=== PATIENT | female | born 1955 | race Caucasian/White ===

== ENCOUNTER 2018-09-14 06:48 | Day surgery (SDC) | payer BC ==
[~2018-09-14 06:48] MED LIST: Lactated Ringers 1,000 ML IV SCH; Lidocaine 1%/Sod Bicarbonate in NS 8.4% 1 ML Syringe IDERM PRN; Sodium Chloride 0.9% 10 ML Syringe FLUSH PRN
[2018-09-14] MEDS ORDERED: Propofol 200 MG/20 ML SDV ONE ×2 (07:07→08:26)
[2018-09-14] MEDS ORDERED: Lidocaine 1% 4 ML ONE (07:07)
[2018-09-14] MEDS ORDERED: fentaNYL 100 MCG/2 ML SDV ONE (07:07)
--- NOTE | 2018-09-14 07:49 | PCM.PREANE ---
Preanesthetic Assessment - Anesthesia/Transfusion/Family Hx Anesthesia History: Prior Anesthesia Reaction Type of Anesthesia Reaction: Excessive Nausea/Vomiting Family History of Anesthesia Reaction: No - Review of Systems General: No Symptoms Pulmonary: No Symptoms Cardiovascular: No Symptoms Gastrointestinal: No Symptoms Neurological: No Symptoms Other: Reports: None (Morbid Obesity BMI 42) - Physical Assessment NPO Status Date: 09/13/18 NPO Status Time: 19:00 O2 Sat by Pulse Oximetry: 93 Respiratory Rate: 16 Vital Signs: Last Vital Signs Temp 36.7 C 09/14/18 07:15 Pulse 93 09/14/18 07:15 Resp 16 09/14/18 07:15 BP 134/91 H 09/14/18 07:15 Pulse Ox 93 L 09/14/18 07:15 Height: 1.63 m Weight: 110.677 kg ASA Class: 2 Mental Status: Alert & Oriented x3 Airway Class: Mallampati = 2 Dentition: Reports: Normal Dentition Thyro-Mental Finger Breadths: 3 ROM/Head Extension: Full Lungs: Clear to Auscultation, Normal Respiratory Effort Cardiovascular: Regular Rate, Regular Rhythm - Allergies Allergies/Adverse Reactions: Allergies Allergy/AdvReac Type Severity Reaction Status Date / Time Penicillins Allergy Rash Verified 09/14/18 07:40 - Acknowledgements Anesthesia Type Planned: MAC Pt an Appropriate Candidate for the Planned Anesthesia: Yes Alternatives and Risks of Anesthesia Discussed w Pt/Guardian: Yes Pt/Guardian Understands and Agrees with Anesthesia Plan: Yes PreAnesthesia Questionnaire HEENT History: Reports: Impaired Vision Cardiovascular History: Reports: None Respiratory History: Reports: None Gastrointestinal History: Reports: None Genitourinary History: Reports: None SALES PROPERTY MANAGER History: Reports: Fibroids Musculoskeletal History: Reports: None Neurological History: Reports: None Psychiatric History: Reports: None Endocrine/Metabolic History: Reports: Obesity/BMI 30+ Hematologic History: Reports: None Immunologic History: Reports: None Oncologic (Cancer) History: Reports: None Dermatologic History: Reports: None - Past Surgical History Head Surgeries/Procedures: Reports: None HEENT Surgical History: Reports: Tonsillectomy Cardiovascular Surgical History: Reports: None Respiratory Surgical History: Reports: None GI Surgical History: Reports: None Female Surgical History: Reports: Section, D&C, Tubal Ligation Male Surgical History: Reports: None Endocrine Surgical History: Reports: None Neurological Surgical History: Reports: None Musculoskeletal Surgical History: Reports: None Oncologic Surgical History: Reports: None - SUBSTANCE USE Smoking Status *Q: Never Smoker Recreational Drug Use History: No - HOME MEDS Home Medications: Home Meds Naproxen Sodium [Aleve] 220 mg PO BID PRN 09/13/18 [History] Acetaminophen [Tylenol Arthritis] 650 mg PO ASDIRECTED 09/14/18 [History] Acetaminophen/Diphenhydramine [Tylenol Pm Ex-Strength Caplet] 1 tab PO BEDTIME 09/14/18 [History] - CURRENT (IN HOUSE) MEDS Current Meds: Current Medications Lactated Ringer's (Ringers, Lactated) 1,000 mls @ 125 mls/hr IV ASDIRECTED NAYA Stop: 09/14/18 23:00 Last Admin: 09/14/18 07:25 Dose: 125 mls/hr Lidocaine/Sodium Bicarbonate (Buffered Lidocaine 1% In Ns 8.4%) 0.25 ml IDERM ONETIME PRN PRN Reason: Prior to IV Start Stop: 09/14/18 18:00 Last Admin: 09/14/18 07:25 Dose: 0.25 ml Sodium Chloride (Saline Flush) 10 ml FLUSH ASDIRECTED PRN PRN Reason: Keep Vein Open Stop: 09/14/18 18:00 Discontinued Medications Fentanyl (Sublimaze) Confirm Administered Dose 100 mcg .ROUTE .STK-MED ONE Stop: 09/14/18 07:08 Lidocaine HCl (Xylocaine-Mpf 1%) Confirm Administered Dose 4 mls @ as directed .ROUTE .STK-MED ONE Stop: 09/14/18 07:08 Propofol (Diprivan 20 Ml) Confirm Administered Dose 400 mg .ROUTE .STK-MED ONE Stop: 09/14/18 07:08
--- NOTE | 2018-09-14 07:59 | PCM.HP ---
H&P History of Present Illness - General Date of Service: 09/14/18 Admit Problem/Dx: 62 year old female here today for colonoscopy. +Family history of colon polyps. No blood in stool, no radical change in bowel habits. She has never had a colonoscopy. Abdomen Pain Score (Numeric/FACES): 0 - Related Data Allergies/Adverse Reactions: Allergies Allergy/AdvReac Type Severity Reaction Status Date / Time Penicillins Allergy Rash Verified 09/14/18 07:40 Home Medications: Home Meds Naproxen Sodium [Aleve] 220 mg PO BID PRN 09/13/18 [History] Acetaminophen [Tylenol Arthritis] 650 mg PO ASDIRECTED 09/14/18 [History] Acetaminophen/Diphenhydramine [Tylenol Pm Ex-Strength Caplet] 1 tab PO BEDTIME 09/14/18 [History] Past Medical History HEENT History: Reports: Impaired Vision Cardiovascular History: Reports: None Respiratory History: Reports: None Gastrointestinal History: Reports: None Genitourinary History: Reports: None 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 Musculoskeletal History: Reports: None Neurological History: Reports: None Psychiatric History: Reports: None Endocrine/Metabolic History: Reports: Obesity/BMI 30+ Hematologic History: Reports: None Immunologic History: Reports: None Oncologic (Cancer) History: Reports: None Dermatologic History: Reports: None - Past Surgical History Head Surgeries/Procedures: Reports: None HEENT Surgical History: Reports: Tonsillectomy Cardiovascular Surgical History: Reports: None Respiratory Surgical History: Reports: None GI Surgical History: Reports: None Female Surgical History: Reports: Section, D&C, Tubal Ligation Male Surgical History: Reports: None Endocrine Surgical History: Reports: None Neurological Surgical History: Reports: None Musculoskeletal Surgical History: Reports: None Oncologic Surgical History: Reports: None Social & Family History - Tobacco Use Smoking Status *Q: Never Smoker - Caffeine Use Caffeine Use: Reports: Coffee - Recreational Drug Use Recreational Drug Use: No Drug Use in Last 12 Months: No H&P Review of Systems - Review of Systems: Review Of Systems: See Below Pulmonary: Reports: No Symptoms Cardiovascular: Reports: No Symptoms Gastrointestinal: Reports: No Symptoms Exam - Exam Exam: See Below - Vital Signs Vital Signs: Last Vital Signs Temp 36.7 C 09/14/18 07:15 Pulse 93 09/14/18 07:15 Resp 16 09/14/18 07:49 BP 134/91 H 09/14/18 07:15 Pulse Ox 93 L 09/14/18 07:49 Weight: 110.677 kg - Exam HEENT: Other Neck: Trachea Midline Lungs: Clear to Auscultation, Normal Respiratory Effort Cardiovascular: Regular Rate, Regular Rhythm GI/Abdominal Exam: Normal Bowel Sounds Problem List Initiated/Reviewed/Updated: Yes Orders Last 24hrs: Active Orders 24 hr Category Date Time Status Peripheral IV Care [RC] . DIRECTED Care 09/14/18 00:01 Active Verify Patient Consent Obtain [RC] ASDIRECTED Care 09/14/18 00:01 Active Lactated Ringers [Ringers, Lactated] 1,000 ml Med 09/14/18 00:01 Active IV ASDIRECTED Lidocaine 1%/Sod Bicarbonate [Buffered Lidocaine 1% in Med 09/14/18 00:01 Active NS 8.4%] 0.25 ml IDERM ONETIME PRN Sodium Chloride 0.9% [Saline Flush] Med 09/14/18 00:01 Active 10 ml FLUSH ASDIRECTED PRN Medication Administration Instruction [OM.PC] Routine Oth 09/14/18 00:01 Ordered Peripheral IV Insertion Adult [OM.PC] Routine Oth 09/14/18 00:01 Ordered Medication Orders Lactated Ringer's (Ringers, Lactated) 1,000 mls @ 125 mls/hr IV ASDIRECTED NAYA Stop: 09/14/18 23:00 Last Admin: 09/14/18 07:25 Dose: 125 mls/hr Lidocaine/Sodium Bicarbonate (Buffered Lidocaine 1% In Ns 8.4%) 0.25 ml IDERM ONETIME PRN PRN Reason: Prior to IV Start Stop: 09/14/18 18:00 Last Admin: 09/14/18 07:25 Dose: 0.25 ml Sodium Chloride (Saline Flush) 10 ml FLUSH ASDIRECTED PRN PRN Reason: Keep Vein Open Stop: 09/14/18 18:00 Assessment/Plan Comment:: 62 year old female here today for colonoscopy for family history of colon polyps , proceed with colonoscopy. Benefits/risks discussed.
[2018-09-14] MEDS ORDERED: Ondansetron 4 MG/2 ML SDV ONE (08:25)
[2018-09-14] MEDS ORDERED: Lidocaine 1% 2 ML ONE (08:25)
--- NOTE | 2018-09-14 08:42 | PCM.OPNOTE ---
- General Post-Op/Procedure Note Date of Surgery/Procedure: 09/14/18 Operative Procedure(s): colonoscopy Findings: Normal colonoscopy Pre Op Diagnosis: Family history of colon polyps Post-Op Diagnosis: Same Anesthesia Technique: MAC Primary Surgeon: aSe Calle Anesthesia Provider: Suzan Becker EBL in mLs: 0 Complications: None Condition: Good Free Text/Narrative:: After the patient gave verbal and written consent, she was placed on blood pressure and pulse ox monitoring. She was given iv sedation which she tolerated well. The olympus colonoscope was inserted per rectum and advanced to the cecum without difficulty. The ileocecal valve and appendiceal orfice were imaged documenting cecal intubation. The scope was slowly withdrawn. The mucosa was carefully examined. The views were good, the prep was good. The scope was then retroflexed in the rectum and details above. THe patient left the room in good condition, there were no complications. Next colonoscopy recommended in 10 years for screening.
--- NOTE | 2018-09-14 08:53 | PCM48HPAN ---
Post Anesthesia Note - EVALUATION WITHIN 48HRS OF ANESTHETIC Vital Signs in Normal Range: Yes Patient Participated in Evaluation: Yes Respiratory Function Stable: Yes Airway Patent: Yes Cardiovascular Function Stable: Yes Hydration Status Stable: Yes Pain Control Satisfactory: Yes Nausea and Vomiting Control Satisfactory: Yes Mental Status Recovered: Yes Pulse Rate: 86 SaO2: 95 (On 2L/NC wean as tolerated.) Resp Rate: 16 Temperature: 36.2 C
[2018-09-14 09:13] VITALS: BP 134/78
== END 2018-09-14 09:35 | disposition home or self-care (01) ==
LOC: JD.SDS 06:48
PROVIDERS: ATTEND Family Medicine
DX: Z12.11 Encounter for screening for malignant neoplasm of colon (principal); Z80.0 Family history of malignant neoplasm of digestive organs; M19.90 Unspecified osteoarthritis, unspecified site; E66.01 Morbid (severe) obesity due to excess calories; Z68.41 Body mass index [BMI] 40.0-44.9, adult; Z88.0 Allergy status to penicillin; Z98.890 Other specified postprocedural states; Z79.891 Long term (current) use of opiate analgesic
CPT/HCPCS: 45378; J2001; J2405; J2704; J7120; 00812; J3010

== ENCOUNTER 2025-01-20 09:44 | Day surgery (SDC) | payer MEDICARE, OTHER ==
[~2025-01-20 09:44] MED LIST changes: -Lactated Ringers 1,000 ML IV SCH; -Lidocaine 1%/Sod Bicarbonate in NS 8.4% 1 ML Syringe IDERM PRN; +Phenylephrine 1% 10 MG/ML SDV ONE; +Sodium Chloride 0.9% 10 ML Syringe FLUSH SCH; +fentaNYL 100 MCG/2 ML SDV ONE; +propofoL 500 MG/50 ML 50 ML ONE
[2025-01-20] MEDS: Lactated Ringers 1,000 ML IV SCH (10:29)
[2025-01-20] MEDS: oxyCODONE ER 10 MG TAB.ER PO SCH (10:29)
[2025-01-20] MEDS ORDERED: Ondansetron 4 MG/2 ML SDV ONE (11:34)
[2025-01-20] MEDS ORDERED: propofoL 500 MG/50 ML 50 ML ONE (11:54)
[2025-01-20] MEDS: Morphine 8 MG, EPINEPHrine 0.3 MG, Cefuroxime 750 MG, Ketorolac 30 MG, Sodium Chloride ... PRN (12:10)
[2025-01-20] MEDS ORDERED: Ropivacaine 0.5% 5 MG/ML 30 ML SDV ONE (12:50)
[2025-01-20] MEDS ORDERED: fentaNYL 100 MCG/2 ML SDV IVPUSH PRN (13:00)
[2025-01-20] MEDS: Ondansetron 4 MG/2 ML SDV IVPUSH PRN (13:48)
[2025-01-20 15:37] VITALS: BP 139/76; PULSE 73
== END 2025-01-20 16:19 | disposition home or self-care (01) ==
LOC: JD.SDS 09:44
PROVIDERS: ATTEND Orthopaedic Surgery
DX: M17.11 Unilateral primary osteoarthritis, right knee (principal); Z88.0 Allergy status to penicillin; Z79.899 Other long term (current) drug therapy
CPT/HCPCS: 0055T; 27447; 64447; 73560; 97116; 97161; A9270; C1713; C1776; J0169; J0690; J0697; J1885; J2272; J2371; J2405; J2704; J2795; J3010; J3373; J7120; 01402; J1171